=== PATIENT | male | born 2000 ===

== ENCOUNTER 2019-04-13 07:41 | Outpatient (CLI) | payer BC ==
--- NOTE | 2019-04-13 08:23 | ULT ---
US Abdominal: 04/13/2019 12:00 AM CLINICAL HISTORY: Upper abdominal pain and elevated lipase. STUDY: Complete abdominal ultrasound COMPARISON: None. FINDINGS: Liver: Size: Normal. Echogenicity: Normal. Contour: Smooth. Mass: None. Common bile duct: 0.3 mm Gallbladder: Normal. Pancreas: Head, body, and tail appear normal. Inferior vena cava: Normal in caliber Aorta: Normal in caliber Spleen: No focal lesions. Spleen measuring 11.2 cm in length. Right kidney: No pelvicalyceal dilatation. Right kidney measuring 11.8 cm in length. Left kidney: No pelvicalyceal dilatation. Right kidney measuring 13.0 cm in length. IMPRESSION: Unremarkable exam.
== END 2019-04-13 07:42 | disposition home or self-care (01) ==
LOC: BICULT 07:41
PROVIDERS: ATTEND Internal Medicine
DX: R11.10 Vomiting, unspecified (principal); R10.10 Upper abdominal pain, unspecified
CPT/HCPCS: 76700